=== PATIENT | female | born 1980 | race Caucasian/White ===

== ENCOUNTER 2016-06-02 15:04 | Emergency (ER) | payer OTHER ==
[~2016-06-02] VITALS: Ht 172.7 cm; Wt 63.0 kg
[2016-06-02 15:08] VITALS: BP 111/77; PULSE 84; RESP 16; TEMP 98.9; O2SAT 100
[2016-06-02] MEDS ORDERED: ZOLO50TA PO (15:14)
--- NOTE | 2016-06-02 15:17 | PD ---
HPI . Flulike symptoms, dry cough, head fullness for a few days Chief Complaint: Cold / Flu Symptoms Time Seen by Provider: 15:17 Travel History International Travel<30 days: No Contact w/Intl Traveler<30days: No Traveled to known affect area: No History of Present Illness HPI 35-year-old female with no PMH here with complaints of dry cough, flulike symptoms that are now resolved, head fullness for several days. Patient says she initially started off with some flulike symptoms and had some body aches. Those have now resolved. She is complaining of head fullness. She admits to a dry cough. She denies any acute pain other than chronic right leg pain that she is currently seeking additional workup for. She denies any trauma or issues with the right leg. She denies any fever, chills, shortness of breath, neck stiffness, photophobia or other symptoms. PFSH Past Medical History Depression: Yes Diminished Hearing: No Neurologic: Yes (leg) Immunizations Current: Yes Tetanus Vaccination: < 5 Years Influenza Vaccination: Yes ?: Not LMP: 2 weeks ago Past Surgical History Appendectomy: Yes Social History Alcohol Use: No Tobacco Use: No Substance Use: No Allergies-Medications (Allergen,Severity, Reaction): Coded Allergies: No Known Allergies (Unverified , 06/02/16) Reported Meds & Prescriptions Reported Meds & Active Scripts Active Augmentin (Amoxicillin-Clavulanate) 875-125 mg Tab 875 Mg PO BID not for use in CrCl <30 ml/min. Reported Zoloft (Sertraline HCl) 50 Mg Tab 50 Mg PO DAILY Review of Systems General / Constitutional: No: Fever Eyes: No: Visual changes HENT: Positive: Congestion, No: Headaches Cardiovascular: No: Chest Pain or Discomfort Respiratory: No: Shortness of Breath Gastrointestinal: No: Abdominal Pain Genitourinary: No: Dysuria Musculoskeletal: No: Pain Skin: No Rash Neurologic: No: Weakness Psychiatric: No: Depression Endocrine: No: Polydipsia Hematologic/Lymphatic: No: Easy Bruising Physical Exam Narrative GENERAL: AAO x 3, no acute distress, Well-nourished, well-developed patient. SKIN: Warm and dry. No visible rashes or bruising. HEAD: Normocephalic and atraumatic. EYES: No scleral icterus. No injection or drainage. ENT: No nasal drainage noted. Mucous membranes pink. Airway patent. Moderate postnasal drip, maxillary sinus tenderness on palpation NECK: Supple, trachea midline. No JVD. No lymphadenopathy CARDIOVASCULAR: Regular rate and rhythm without murmurs, gallops, or rubs. RESPIRATORY: Breath sounds equal bilaterally. No accessory muscle use. No rhonchi or rales. GASTROINTESTINAL: Abdomen soft, non-tender, nondistended. EXTREMITIES: No cyanosis or edema. NO obvious deformity. She is ambulatory. BACK: Nontender without obvious deformity. No CVA tenderness. PSYCH: AAO x 3, normal affect. Data Data Last Documented VS Vital Signs Date Time Temp Pulse Resp B/P Pulse Ox O2 Delivery O2 Flow Rate FiO2 06/02/16 15:08 98.9 84 16 111/77 100 MDM Medical Decision Making Medical Screen Exam Complete: Yes Emergency Medical Condition: Yes Medical Record Reviewed: Yes Differential Diagnosis Sinusitis, acute pharyngitis, otitis media, mastoiditis Narrative Course 35-year-old female with a history of recurrent sinusitis here with complaints of dry cough, flulike symptoms that are now resolved, head fullness for several days. Patient says she initially started off with some flulike symptoms and had some body aches. Those have now resolved. She is complaining of head fullness. She admits to a dry cough. She denies any acute pain other than chronic right leg pain that she is currently seeking additional workup for. She denies any trauma or issues with the right leg. She denies any fever, chills, shortness of breath, neck stiffness, photophobia or other symptoms. Patient seen and examined. There are no acute findings other than some postnasal drip and acute maxillary sinus tenderness. We discussed the influenza swab, but she states that she doesn't have any more symptoms and she also received a flu vaccine this year. This seems to be another flare of sinusitis. Upon further discussion she admits that she has chronic sinusitis. I have advised her that I will treat with course of antibiotics that she should follow-up with her primary care provider. Patient verbalized understanding of instructions, questions were answered, and thanked me for their care. I advised them if their condition worsens, please return to the nearest emergency room for further care. Diagnosis Primary Impression: Acute sinusitis Qualified Code: J01.01 - Acute recurrent maxillary sinusitis Patient Instructions: General Instructions, Sinusitis (ED) Additional Instructions: Please return to emergency department if your symptoms return or worsen. Follow up with your primary care provider. Take medications as prescribed. As we discussed these medications can cause some upset stomach, this is normal. Take Tylenol or Motrin as needed for pain. You can also use Claritin, Zyrtec or Phoebe for 7 days. Pick one and use it. Med/Other Pt SpecificInfo: Prescription(s) given Scripts Amoxicillin-Clavulanate (Augmentin)875-125 mg [id number] Mg PO BID #20 TAB not for use in CrCl <30 ml/min. Prov:Danya Rodriguez MD 06/02/16 Disposition: 01 DISCHARGE HOME Condition: Stable [place] Delgado Jun 02, 2016 15:17
[2016-06-02] MEDS ORDERED: AUGM875T PO (15:30)
[2016-07-23] MEDS ORDERED: SERT25TA83 PO (14:57)
== END 2016-06-02 15:40 | disposition home or self-care (01) ==
LOC: PHEFT 15:04
DX: J01.01 Acute recurrent maxillary sinusitis (principal); M79.604 Pain in right leg; G89.29 Other chronic pain
CPT/HCPCS: 99283

== ENCOUNTER → 2016-08-15 | Outpatient (CLI) | payer OTHER ==
[~2016-08-15] MED LIST: SERT25TA83 PO
[2016-08-15 17:46] LABS: BICARBONATE 28.6 MEQ/L (21.0-32.0); POTASSIUM 4.3 MEQ/L (3.5-5.1)
== END ==
LOC: PLAB 14:24
PROVIDERS: ATTEND Family Medicine
DX: M79.604 Pain in right leg (principal); Z78.9 Other specified health status
CPT/HCPCS: 80048; 82607

== ENCOUNTER 2017-08-31 13:41 | Emergency (ER) | payer OTHER ==
[~2017-08-31] VITALS: Ht 172.7 cm; Wt 69.0 kg
[2017-08-31 13:46] VITALS: BP 131/79; PULSE 72; RESP 16; TEMP 98.3; O2SAT 99
[2017-08-31 14:28] LABS: BILIRUBIN, URINE NEG (NEG); BLOOD, URINE LARGE (NEG); GLUCOSE,URINE NEG (NEG); KETONE, URINE NEG (NEG); NITRITE,URINE NEG (NEG); URINE COLOR YELLOW (YELLW/STRAW); URINE LEUKOCYTE ESTERASE NEG (NEG)
[2017-08-31 14:32] VITALS: BP 121/86; PULSE 77; RESP 18; O2SAT 100
[2017-08-31 14:32] LABS: AMORPHOUS SEDIMENT, URINE MOD; SQUAMOUS EPITHELIAL CELL URINE 0-5 /hpf (0-5)
[2017-08-31] MEDS ORDERED: IBUP1TAB5 PO (14:38)
[2017-08-31] MEDS ORDERED: ZOLO100T PO (14:38)
--- NOTE | 2017-08-31 16:36 | PD ---
HPI Chief Complaint: Abdominal Pain Time Seen by Provider: 14:39 Travel History International Travel<30 days: Yes Contact w/Intl Traveler<30days: Yes Name of Country Traveled to: [place] Traveled to known affect area: No History of Present Illness HPI Patient complains of left lower quadrant area pain, seems to be worse with certain type of activity or movement. But is intermittent in nature. Currently rates at 4 out of 10, nonradiating, anywhere between pressure to sharp. Patient denies any alleviating or aggravating factors. Patient denies any associated factors such as fever, rash, flank pain, back pain, chest pain, headache or neck pain, no active nausea vomiting or diarrhea. No known drug allergy Past medical history significant for perforated appendicitis with peritonitis status post surgical removal as well as dehiscence of that wound PFS Past Medical History Depression: Yes Diminished Hearing: No Medical other: Yes (PERITONITIS) Neurologic: Yes (leg) Immunizations Current: Yes Influenza Vaccination: No ?: Not LMP: 2 DAYS Past Surgical History Appendectomy: Yes Social History Alcohol Use: No Tobacco Use: No Substance Use: No Allergies-Medications (Allergen,Severity, Reaction): Coded Allergies: No Known Allergies (Unverified Adverse Reaction, Unknown, 08/31/17) Reported Meds & Prescriptions Reported Meds & Active Scripts Active Reported Ibuprofen 400 Mg Tab 400 Mg PO ONCE PRN Zoloft (Sertraline HCl) 100 Mg Tab 100 Mg PO DAILY Review of Systems General / Constitutional: No: Fever Eyes: No: Visual changes HENT: No: Headaches Cardiovascular: No: Chest Pain or Discomfort Respiratory: No: Shortness of Breath Gastrointestinal: Positive: Abdominal Pain Genitourinary: No: Dysuria Musculoskeletal: No: Pain Skin: No Rash Neurologic: No: Weakness Psychiatric: No: Depression Endocrine: No: Polydipsia Hematologic/Lymphatic: No: Easy Bruising Physical Exam Narrative GENERAL: SKIN: Warm and dry. HEAD: Atraumatic. Normocephalic. EYES: Pupils equal and round. No scleral icterus. No injection or drainage. ENT: No nasal bleeding or discharge. Mucous membranes pink and moist. NECK: Trachea midline. No JVD. CARDIOVASCULAR: Regular rate and rhythm. RESPIRATORY: No accessory muscle use. Clear to auscultation. Breath sounds equal bilaterally. GASTROINTESTINAL: Abdomen soft, non-tender, nondistended. Patient has an upside down T-shaped surgical incision is well-healed(a combination of LW CS and midline infraumbilical incision).... Her pain seemed to be repeated reproducible when asked to do a sit up and the combination of palpating. Incisional. It is likely that the patient has muscular related pain. No evidence of any hernia ventrally MUSCULOSKELETAL: Extremities without clubbing, cyanosis, or edema. No obvious deformities. NEUROLOGICAL: Awake and alert. No obvious cranial nerve deficits. Motor grossly within normal limits. Five out of 5 muscle strength in the arms and legs. Normal speech. PSYCHIATRIC: Appropriate mood and affect; insight and judgment normal. Data Data Last Documented VS Vital Signs Date Time Temp Pulse Resp B/P (MAP) Pulse Ox O2 Delivery O2 Flow Rate FiO2 08/31/17 14:32 77 18 121/86 (98) 100 Room Air 08/31/17 13:46 98.3 Orders Orders Urinalysis - C+S If Indicated (08/31/17 13:54) Ed Urine Pregnancytest Poc (08/31/17 13:54) Ct Abd/Pel W/O Iv Contrast (08/31/17 16:00) Labs Laboratory Tests Test 08/31/17 13:55 Urine Collection Type CLEAN CATCH Urine Color YELLOW Urine Turbidity SLIGHT Urine pH 6.0 Urine Specific [place] 1.020 Urine Protein NEG mg/dL Urine Glucose (UA) NEG mg/dL Urine Ketones NEG mg/dL Urine Occult Blood LARGE Urine Nitrite NEG Urine Bilirubin NEG Urine Urobilinogen 0.2 MG/DL Urine Leukocyte Esterase NEG Urine RBC 4-9 /hpf Urine Squamous Epithelial Cells 0-5 /hpf Urine Amorphous Sediment MOD Microscopic Urinalysis Comment CULT NOT INDICATED Urine Collection Time 1355 MDM Medical Decision Making Medical Screen Exam Complete: Yes Emergency Medical Condition: Yes Medical Record Reviewed: Yes Differential Diagnosis Colitis versus diverticulitis versus kidney stone Narrative Course test is negative UA is negative for any UTI CT abdomen and pelvis read by radiologist as no stones or obstructive uropathy, considerable stool in the distal colon but nonobstructive pattern, and mild degenerative disc disease in the lower lumbar spine at L5-S1 Diagnosis Primary Impression: Abdominal wall strain Qualified Codes: S39.011A - Strain of muscle, fascia and tendon of abdomen, initial encounter Patient Instructions: General Instructions, Muscle Strain (ED) Scripts Tramadol (Ultram) 50 Mg Tab 50 MG PO Q6H Y for PAIN, #14 TAB 0 Refills Prov: Casey Foy MD 08/31/17 Baclofen (Baclofen) 20 Mg Tab 20 MG PO TID for Muscle Spasm, #20 TAB 0 Refills Prov: Casey Foy MD 08/31/17 Disposition: 01 DISCHARGE HOME Condition: Stable Casey Foy MD Aug 31, 2017 16:36
--- NOTE | 2017-08-31 17:03 | RADRPT ---
EXAM DATE: 08/31/2017 4:57 PM EDT AGE/SEX: 37 years / Female INDICATIONS: Left flank pain. CLINICAL DATA: This is the patient's initial encounter. Patient reports that signs and symptoms have been present for 3 days and indicates a pain score of 3/10. MEDICAL/SURGICAL HISTORY: None. Appendectomy. RADIATION DOSE: 5.10 CTDI (mGy) COMPARISON: No prior [facility] exams available for comparison. TECHNIQUE: Multiple contiguous axial images were obtained through the abdomen. Images were obtained using multiple row detector helical technique. Using dose reduction techniques, radiation dose was ke pt as low as reasonably achievable to obtain optimal diagnostic quality images. FINDINGS: Lower Lungs: The visualized lower lungs are clear. Liver: The liver has a homogeneous density without space-occupying lesion. There is no dilation of th e biliary tree. Spleen: Homogeneous density without enlargement. Pancreas: Unremarkable without mass or calcification. Kidneys: Normal in size and shape. No evidence of mass or hydronephrosis. Adrenal Glands: Unremarkable. Aorta: The aorta and proximal iliac vessels are grossly unremarkable without aneurysmal dilation. Bowel/Mesentery: The bowel loops are grossly unremarkable. The cecum and sigmoid colon have a normal configuration. Large stool seen in the rectum. Abdominal Wall: Intact. Retroperitoneum: No evidence of adenopathy in the retrocrural, para-aortic, or deep pelvic regions. Bladder: Contours are smooth. Reproductive Organs: No abnormal masses or calcifications seen. Inguinal: The inguinal region is unremarkable without evidence of adenopathy. Bony Structures: Visualized osseous structures are intact. Very small, chronic appearing posterior d isc osteophyte complex seen at L5/S1. No associated foraminal or spinal stenosis demonstrated. CONCLUSION: 1. No stones or obstructive uropathy demonstrated. 2. Considerable stool in the distal colon. Nonobstructive pattern. 3. Mild degenerative disc disease in the lower lumbar spine at L5/S1. Electronically signed by: Evans Montero MD 08/31/2017 5:02 PM EDT
[2017-08-31] MEDS ORDERED: BACL20TA PO (17:16)
[2017-08-31] MEDS ORDERED: TRAM50 PO (17:16)
[2017-08-31 17:34] VITALS: BP 122/78
== END 2017-08-31 17:35 | disposition home or self-care (01) ==
LOC: PHED 13:41
DX: S39.011A Strain of muscle, fascia and tendon of abdomen, initial encounter (principal); M51.37 Other intervertebral disc degeneration, lumbosacral region; F32.9 Major depressive disorder, single episode, unspecified; Z79.899 Other long term (current) drug therapy; X58.XXXA Exposure to other specified factors, initial encounter
CPT/HCPCS: 74176; 81001; 84703